=== PATIENT | female | born 1995 | race Caucasian/White ===

== ENCOUNTER 2017-07-21 08:29 | Emergency (ER) | payer OTHER ==
[~2017-07-21] VITALS: Ht 157.5 cm; Wt 68.0 kg
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
[2017-07-21 09:04] LABS: BASOPHILS # (AUTO) 0.1 /CMM (0.0-0.2); BASOPHILS % (AUTO) 0.4 % (0.0-2.0); EOSINOPHILS # (AUTO) 0.1 /CMM (0.0-0.7); EOSINOPHILS % (AUTO) 0.6 % (0.0-6.0); HEMATOCRIT 40 % (33-45); HEMOGLOBIN 13.4 g/dL (11.5-14.8); LYMPHOCYTES # (AUTO) 1.8 /CMM (0.8-4.8); MEAN CORPUSCULAR HEMOGLOBIN 28 PG (26.0-33.0); MEAN CORPUSCULAR HGB CONC 33 g/dl (31.0-36.0); MEAN CORPUSCULAR VOLUME 84 fL (82-100); MONOCYTES # (AUTO) 0.9 /CMM (0.1-1.30); MONOCYTES % (AUTO) 6.7 % (2.0-12.0); NEUTROPHILS # (AUTO) 10.9 /CMM (1.8-8.9); NEUTROPHILS % (AUTO) 79.3 % (43.0-81.0); PLATELET COUNT (AUTO) 308 /CMM (150-450); RDW COEFFICIENT OF VARIATION 13.9 (11.5-15.0); RED BLOOD CELL COUNT(AUTO) 4.83 MIL/uL (4.0-5.2); WHITE BLOOD COUNT (AUTO) 13.8 K/uL (4.3-11.0)
[2017-07-21 09:13] LABS: CALCIUM, SERUM 9.5 mg/dL (8.5-10.1); CREATININE 0.7 mg/dL (0.6-1.3)
[2017-07-21 09:14] LABS: APPEARANCE,URINE CLEAR (CLEAR); BILIRUBIN,URINE NEGATIVE (NEGATIVE); BLOOD, URINE TRACE-INTA Ery/uL (NEGATIVE); COLOR,URINE YELLOW (YELLOW); KETONES,URINE TRACE (NEGATIVE); LEUKOCYTE ESTERASE ,URINE NEGATIVE (NEGATIVE); NITRITE, URINE NEGATIVE (NEGATIVE); PH,URINE 5.5 (5.0-8.0); PROTEIN,URINE TRACE mg/dl (NEGATIVE); UGLUCOSE NEGATIVE (NEGATIVE); UROBILINOGEN,URINE 0.2 EU/dL (0.2)
[2017-07-21 09:19] LABS: ALBUMIN 4.3 g/dL (3.4-5.0); BILIRUBIN,DIRECT 0.1 mg/dL (0.0-0.2); BILIRUBIN,TOTAL 0.6 mg/dL (0.2-1.0); TOTAL PROTEIN, SERUM 8.2 g/dL (6.4-8.2)
[2017-07-21 09:19] LABS: BACTERIA,URINE None seen /HPF (None Seen); RBC,URINE 0-2 /HPF (0-2); SQUAMOUS EPITHELIAL CELL,UR Few /HPF (None Seen); WBC,URINE NONE SEEN /HPF (0-3)
[2017-07-21 09:22] LABS: SALICYLATE 0.8 mg/dL (2.8-20.0)
--- NOTE | 2017-07-21 10:20 | NUR ---
[facility]NA[facility] AT BEDSIDE
--- NOTE | 2017-07-21 10:34 | NUR ---
[facility] called [phone] lisa granger motion graphics designer
--- NOTE | 2017-07-21 11:17 | NUR ---
[facility] called [phone]
[2017-07-21] MEDS ORDERED: POTASSIUM CHLORIDE 20 MEQ TAB.PRT.SR PO ONE ×2 (11:30→14:10)
[2017-07-21] MEDS ORDERED: IV NS 0.9% 1,000 ML BAG IV ONE (12:30)
--- NOTE | 2017-07-21 12:33 | NUR ---
[facility] [address] TRISTIN KING ETA [id number]
[2017-07-21 13:44] VITALS: BP 106/59
--- NOTE | 2017-07-21 14:29 | NUR ---
GIVEN REPORT TO NICKI REESE [facility] [phone]
== END 2017-07-21 15:30 | disposition short-term general hospital (02) ==
LOC: ER 08:30
DX: T42.4X2A Poisoning by benzodiazepines, intentional self-harm, initial encounter (principal); E87.6 Hypokalemia; F10.10 Alcohol abuse, uncomplicated; G93.40 Encephalopathy, unspecified; F17.200 Nicotine dependence, unspecified, uncomplicated; Z33.1 Pregnant state, incidental; Y92.89 Other specified places as the place of occurrence of the external cause
CPT/HCPCS: 36415; 76856; 80048; 80076; 80305; 80329; 81001; 84702; 84703; 85025; 87081; 93005; 96360; 99291; A4606; G0480 ×2; J7030; Z7610; 81000-TC

== ENCOUNTER 2017-10-07 19:06 | Emergency (ER) | payer OTHER ==
[~2017-10-07] VITALS: Ht 157.5 cm; Wt 72.6 kg
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
[2017-10-07] MEDS ORDERED: LIDOCAINE 1% INJ 50 ML MDV IJ ONE (20:03)
--- NOTE | 2017-10-07 20:33 | NUR ---
MAK dillard at bed side for sutures
--- NOTE | 2017-10-07 21:07 | NUR ---
pt ambulatory with a steady gait, skin warm and dry, resp even and unlabored
--- NOTE | 2017-10-07 21:08 | NUR ---
patient states she doesnt want to wait for paper work, patient left [facility] ED. no distress noted, skin warm and dry, resp even and unlabored.
[2017-10-07 21:09] VITALS: BP 122/78
[2017-10-07] MEDS ORDERED: LIDOCAINE 1%-EPI 1:100,000 50 ML VIAL IJ ONE (21:30)
== END 2017-10-07 21:38 | disposition home or self-care (01) ==
LOC: ER 19:07
DX: S41.112A Laceration without foreign body of left upper arm, initial encounter (principal); S41.111A Laceration without foreign body of right upper arm, initial encounter; S61.211A Laceration without foreign body of left index finger without damage to nail, initial encounter; S51.811A Laceration without foreign body of right forearm, initial encounter; F10.10 Alcohol abuse, uncomplicated; F17.200 Nicotine dependence, unspecified, uncomplicated; W22.8XXA Striking against or struck by other objects, initial encounter; Y93.89 Activity, other specified; Y92.89 Other specified places as the place of occurrence of the external cause; Y99.8 Other external cause status
CPT/HCPCS: 12005; 99284; A4606; A6403 ×2; J3490; Z7610

== ENCOUNTER 2020-11-01 22:59 | Emergency (ER) | payer OTHER, MEDICAID ==
[~2020-11-01] VITALS: Ht 157.5 cm; Wt 81.6 kg
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
[2020-11-01] MEDS ORDERED: HYDROCODONE/APAP 10/325MG TABLET ONE (23:23)
--- NOTE | 2020-11-01 23:23 | NUR ---
[employer] AT BEDSIDE TALKING TO PT.
[2020-11-01] MEDS ORDERED: ONDANSETRON 4 MG TAB.RAPDIS ONE (23:24)
[2020-11-01] MEDS ORDERED: TDAP [DIPH/PERTUSSIS/TET] 0.5 ML VIAL IM ONE (23:24)
[2020-11-01] MEDS ORDERED: LIDOCAINE MPF 1%-EPI 1:200,000 30 ML VIAL IJ ONE (23:24)
[2020-11-01] MEDS ORDERED: HYDROCODONE/APAP 7.5/325MG 1 EACH TABLET PO ONE (23:30)
[2020-11-01] MEDS: HYDROCODONE/APAP 10/325MG TABLET PO ONE (23:32)
[2020-11-01] MEDS: ONDANSETRON 4 MG TAB.RAPDIS SL ONE (23:32)
[2020-11-02] MEDS ORDERED: HYDR-3976 PO (00:28)
[2020-11-02] MEDS: TDAP [DIPH/PERTUSSIS/TET] 0.5 ML VIAL IM ONE (00:30)
[2020-11-02] MEDS ORDERED: CEPH250S PO (00:34)
[2020-11-02] MEDS ORDERED: CEPHALEXIN MONOHYDRATE 500 MG CAPSULE PO ONE (00:38)
[2020-11-02] MEDS: CEPHALEXIN MONOHYDRATE 500 MG CAPSULE PO ONE (00:41)
--- NOTE | 2020-11-02 01:30 | NUR ---
Patient discharged to home in stable condition. Written and verbal after care instructions given. Patient verbalizes understanding of instruction.
[2020-11-02 02:00] VITALS: BP 134/71
== END 2020-11-02 01:30 | disposition home or self-care (01) ==
LOC: ER 23:02
DX: S01.81XA Laceration without foreign body of other part of head, initial encounter (principal); Y00.XXXA Assault by blunt object, initial encounter; Y93.89 Activity, other specified; Y92.89 Other specified places as the place of occurrence of the external cause; Y99.8 Other external cause status
CPT/HCPCS: 12052; 70450; 70486; 90471; 90715; 99285; A6403; J3490; Q0162